=== PATIENT | female | born 1975 | race Caucasian/White ===

== ENCOUNTER 2017-02-09 08:37 | Emergency (ER) | payer OTHER ==
[~2017-02-09 08:37] MED LIST: INDERAL20 MG PO; NEURONTIN300 MG PO
[2017-02-09 09:52] LABS: BASOPHIL 0.6 % (0-2); EOSINOPHIL 1.3 % (0-5); HCT 43.5 % (37.0-47.0); HGB 15.7 g/dl (12.5-16.0); LYMPHOCYTE 19.3 % (15-48); MCH 35.7 pg (25.0-31.0); MCHC 36.1 g/dL (32.0-36.0); MCV 98.9 fL (78.0-100.0); MONOCYTE 10.1 % (0-12); MPV 9.6 fL (6.0-9.5); NEUTROPHIL 68.7 % (41-80); PLT 179 K/uL (150-400); WBC 4.7 K/uL (4.0-10.5)
[2017-02-09 09:54] LABS: BILIRUBIN 1+ mg/dL (NEGATIVE); BLOOD NEGATIVE Ery/uL (NEGATIVE); CLARITY CLEAR (CLEAR); COLOR YELLOW (YELLOW); GLUCOSE (U) NORMAL (NORMAL); KETONE (U) 3+ (LARGE) mg/dL (NEGATIVE); LEUKOCYTES NEGATIVE Leu/uL (NEGATIVE); NITRITE NEGATIVE (NEGATIVE); PROTEIN TRACE (LOW) mg/dL (NEGATIVE)
[2017-02-09 10:01] LABS: BACTERIA TRACE; RENAL EPITHELIAL CELLS RARE; URINARY WBC RARE
[2017-02-09 10:02] LABS: AMORPHOUS URATES CRYSTALS TRACE
[2017-02-09 10:05] LABS: AMPHETAMINES NEGATIVE (NEGATIVE); BARBITURATES NEGATIVE (NEGATIVE); BENZODIAZEPINES NEGATIVE (NEGATIVE); COCAINE NEGATIVE (NEGATIVE); MARIJUANA (THC) NEGATIVE (NEGATIVE)
[2017-02-09 10:06] LABS: METHADONE NEGATIVE (NEGATIVE); TRICYCLIC ANTIDEPRESSANT NEGATIVE (NEGATIVE)
[2017-02-09 10:07] LABS: ACETAMINOPHEN (TYLENOL) < 5.0 ug/mL (10.0-30.0); ALCOHOL (ETOH) MEDICAL NONE DETECTED; SALICYLATE < 6 ug/mL (0-300)
[2017-02-09 10:08] LABS: ALBUMIN 4.8 g/dL (3.5-5.0); BILIRUBIN - TOTAL 1.4 mg/dL (0.1-1.0); CREATININE 0.7 mg/dL (0.5-1.0); POTASSIUM 3.6 mmol/L (3.5-5.1); TOTAL PROTEIN 7.8 g/dL (6.4-8.3)
== END 2017-02-09 11:48 | disposition home or self-care (01) ==
LOC: FER 08:37
PROVIDERS: Internal Medicine
DX: I95.1 Orthostatic hypotension (principal); K85.90 Acute pancreatitis without necrosis or infection, unspecified; F10.10 Alcohol abuse, uncomplicated; I10 Essential (primary) hypertension; Z79.899 Other long term (current) drug therapy
CPT/HCPCS: 36415; 70450; 71010; 80053; 80305; 81001; 83690; 85025; G0480; J1885